=== PATIENT | male | born 1985 | race Caucasian/White ===

== ENCOUNTER → 2023-10-11 15:16 | Outpatient (REF) | payer OTHER, SELFPAY | LOC: RAD 15:16 | PROVIDERS: ATTENDING PHYSICIAN Surgery; FAMILY PHYSICIAN Internal Medicine | DX: K57.32 Diverticulitis of large intestine without perforation or abscess without bleeding (principal) | CPT/HCPCS: 74177; Q9967 ==

== ENCOUNTER → 2023-11-08 06:17 | Day surgery (SDC) | payer OTHER, SELFPAY | LOC: GI 06:17 | PROVIDERS: ATTENDING PHYSICIAN Surgery; FAMILY PHYSICIAN Internal Medicine | DX: Z12.11 Encounter for screening for malignant neoplasm of colon (principal); Z86.010 Personal history of colon polyps; K57.30 Diverticulosis of large intestine without perforation or abscess without bleeding | CPT/HCPCS: G0105 ==

== ENCOUNTER 2024-07-13 20:09 | Emergency (ER) | payer OTHER, SELFPAY ==
[2024-07-13 20:13] VITALS: BP 154/98
[2024-07-13 20:38] LABS: % Basophils 0.7 % (0-2); % Eosinophils 1.8 % (0-6); % Immature Granulocytes 0.4 % (0-0.5); % Lymphocytes 28.9 % (20.5-51.1); % Monocytes 5.7 % (1.7-9.3); % Neutrophils 62.5 % (42.2-75.2); Absolute Basophils 0.1 10^3/uL (0-0.2); Absolute Eosinophils 0.1 10^3/uL (0-0.7); Absolute Lymphocytes 2.1 10^3/uL (1.2-3.4); Absolute Monocytes 0.4 10^3/uL (0.1-0.6); Absolute Neutrophils 4.6 10^3/uL (1.4-6.5); Hematocrit 37.4 % (39.0-52.0); Hemoglobin 13.5 g/dL (13.0-18.0); Mean Corp Hgb Conc. 36.1 g/dL (33.0-37.0); Mean Corpuscular Hgb 30.8 pg (27.0-31.0); Mean Corpuscular Volume 85.4 fL (80.0-94.0); Mean Platelet Volume 9.8 fL (7.4-10.4); Nucleated Red Blood Cells % 0 % (-); Platelet Count 207 10^3/uL (130-400); Red Blood Cell Count 4.38 10^6/uL (4.70-6.10); White Blood Cell Count 7.4 10^3/uL (4.8-10.8)
[2024-07-13 21:03] LABS: ALT (SGPT) 39 U/L (0-50); AST (SGOT) 33 U/L (17-59); Albumin 5.3 g/dl (3.5-5.0); Alkaline Phosphatase 84 U/L (38-126); Blood Urea Nitrogen 14 mg/dl (9-20); Calcium 9.8 mg/dl (8.4-10.2); Carbon Dioxide 27 mmol/L (22-30); Chloride 102 mmol/L (98-107); Glucose 98 mg/dl (70-99); Lipase 87 U/L (23-300); Potassium 4.1 mmol/L (3.5-5.1); Sodium 141 mmol/L (135-145); Total Bilirubin 0.6 mg/dl (0.2-1.3); Total Protein 7.8 g/dl (6.3-8.2); eGFR > 60.00
[2024-07-13 21:34] VITALS: BP 168/87
[2024-07-13 21:39] VITALS: BMI 26.6
[2024-07-13 22:00] VITALS: BP 138/76
[2024-07-13] MEDS: OMNIPAQUE 50 ML PO (22:15)
[2024-07-13 22:27] LABS: Urine Albumin Negative (Neg - Trace); Urine Bilirubin Negative (Negative); Urine Character Clear (Clear); Urine Color Yellow; Urine Glucose Negative (Negative); Urine Ketone Negative (Negative); Urine Leukocyte Negative (Negative); Urine Nitrite Negative (Negative); Urine Occult Blood Negative (Negative); Urine Urobilinogen Negative (Neg - 1+)
--- NOTE | 2024-07-13 22:53 | ED.GENMED ---
History of Present Illness
<SHAN Melton - Last Filed: 07/14/24 05:20>
General
Chief Complaint: Abdominal Pain
Source: patient
Exam Limitations: none
Time Seen by Provider: 07/13/24 22:30
Nursing documentation reviewed up to this point in time: agreed with
History of Present Illness
History of Present Illness:
Patient is a 39yo M w/ PMH of severe diverticulitis presents to ED w/ abd discomfort x1mo. He reports having a flare about 1 mo ago w/ tenderness and constipation that was somewhat relieved w/ low residual diet. He reports continued on/off LLQ
discomfort in the past 4 weeks. He states it is not pain but a soreness or discomfort feeling. Occasional radiation to L leg. Worse w/ abd muscle flexing, bladder fullness, and gas. He reports constipation has improved w/ daily, well-formed BMs this
week. Reports stool sometimes looks like bile or mucus. He denies N/V/D, fever, and bloody/dark BM. He admits to contacting his colorectal surgeon for guidance but did not hear back.
Past History
<SHAN Melton - Last Filed: 07/14/24 05:20>
Past History
ED Past Medical History: None
ED Past Surgical History: Tonsilectomy
Social History
Tobacco: Non-smoker
Drug: None
Personal:
Living: with family
Employment: Employed
Family History
Family History: Other (No significant)
Review of Systems
<SHAN Melton - Last Filed: 07/14/24 05:20>
Review of Systems
Constitutional: Denies fever, fatigue or chills
Respiratory: Denies cough or trouble breathing
Cardiac: Denies chest pain or palpitations
ABD/GI: Reports abdominal pain; Denies nausea, vomiting, diarrhea, constipated, bloody stools or black stools
: Denies dysuria
Phy Exam
<Johnna Daley [facility] - Last Filed: 07/14/24 05:20>
General Physical Exam
General Presentation: well appearing
General age: appears stated age
General Skin: warm and dry
General Habitus: normal
General Mental: alert
Cardiovascular Exam
Cardiovascular Exam: regular rate/rhythm, no edema, no gallop and no murmur
Pulmonary Exam
Pulmonary Exam: lungs clear, no respiratory distress, no rales, no crackles, no rhonchi and no wheezing
Gastrointestinal Exam
Gastrointestinal Exam: normal bowel sounds, non tender, soft and no organomegaly
Neurological Exam
Neurological Exam: alert, oriented x3, no motor deficits, no sensory deficits and speech normal
Musculoskeletal Exam
Musculoskeletal Exam: no edema
Course
<Johnna Daley [facility] - Last Filed: 07/14/24 05:20>
Orders/Labs/Results
Orders:
Orders
07/13/24 20:28
Complete Blood Count/With Diff Urgent
Comprehensive Metabolic Panel Urgent
Lipase Urgent
07/13/24 22:13
Iohexol [Omnipaque] 50 ml .ROUTE .[facility]
07/13/24 22:14
Iohexol [Omnipaque] See Protocol PO NOW STA
07/13/24 22:19
Urinalysis Reflex To Culture Urgent
Date Specimen was Collected: 07/13/24
Time Specimen was Collected: 22:17
07/14/24 00:04
CT Abd/pelvis W Iv Cont Urgent
Reason For Exam: LLQ abdominal pain, hx diverticulitis,abscess
Abnormal Lab Results
07/13/24
20:28
RBC 4.38 L 10^6/uL
(4.70-6.10)
Hct 37.4 L %
(39.0-52.0)
Albumin 5.3 H g/dl
(3.5-5.0)
07/13/24 20:28
07/13/24 20:28
Vital Signs
Initial and Last Documented VS:
Initial Vital Signs
Temp Pulse Resp BP Pulse Ox
98.2 F 94 18 154/98 99
07/13/24 20:13 07/13/24 20:13 07/13/24 20:13 07/13/24 20:13 07/13/24 20:13
Last Documented Vital Signs
Temp Pulse Resp BP Pulse Ox
98.6 F 86 14 143/81 100
07/14/24 00:35 07/14/24 00:35 07/14/24 00:35 07/14/24 00:35 07/14/24 00:35
<Jakob Callahan, DO - Last Filed: 07/14/24 01:42>
Orders/Labs/Results
Orders:
Orders
07/13/24 20:28
Complete Blood Count/With Diff Urgent
Comprehensive Metabolic Panel Urgent
Lipase Urgent
07/13/24 22:13
Iohexol [Omnipaque] 50 ml .ROUTE .[facility] ONE
07/13/24 22:14
Iohexol [Omnipaque] See Protocol PO NOW STA
07/13/24 22:19
Urinalysis Reflex To Culture Urgent
Date Specimen was Collected: 07/13/24
Time Specimen was Collected: 22:17
07/14/24 00:04
CT Abd/pelvis W Iv Cont Urgent
Reason For Exam: LLQ abdominal pain, hx diverticulitis,abscess
Abnormal Lab Results
07/13/24
20:28
RBC 4.38 L 10^6/uL
(4.70-6.10)
Hct 37.4 L %
(39.0-52.0)
Albumin 5.3 H g/dl
(3.5-5.0)
07/13/24 20:28
07/13/24 20:28
Vital Signs
Initial and Last Documented VS:
Initial Vital Signs
Temp Pulse Resp BP Pulse Ox
98.2 F 94 18 154/98 99
07/13/24 20:13 07/13/24 20:13 07/13/24 20:13 07/13/24 20:13 07/13/24 20:13
Last Documented Vital Signs
Temp Pulse Resp BP Pulse Ox
98.6 F 86 14 143/81 100
07/14/24 00:35 07/14/24 00:35 07/14/24 00:35 07/14/24 00:35 07/14/24 00:35
<Jakob Callahan DO - Last Filed: 07/14/24 01:42>
MDM/Problems Addressed
Differential Diagnosis Includes:
Diverticulitis, colitis
MDM/Problems Addressed:
39-year-old male with likely chronic colitis. No signs of abscess or diverticulitis. Patient stable for discharge.
Chronic conditions affecting care: Other (Diverticulitis)
<SHAN Melton - Last Filed: 07/14/24 05:20>
*Critical Care Note
Total Time (30-74mins, 75-104mins- exclusive of procedures): Not Applicable
<DO Britney Fraser Last Filed: 07/14/24 01:42>
*Radiology
Radiology exam reviewed: radiology read reviewed (CT abdomen pelvis shows mild colon wall thickening, likely chronic process)
*Pulse Oximetry
Patient hypoxic: no
<DO Britney Fraser Last Filed: 07/14/24 01:42>
Patient Management
Social determinants of health affecting care: Living situation and Strong social support
Escalation/DeEscalation of care consider admission/obs:
Admit not indicated
ED Attending Note
<SHAN Melton - Last Filed: 07/14/24 05:20>
-
Portions of this chart may have been created with voice recognition software.� Occasional wrong word or��sound alike� substitutions may have occurred due to the inherent limitations of voice recognition software.
<Jakob Callahan DO - Last Filed: 07/14/24 01:42>
ED Attending Note
Patient seen and examined by attending physician: Yes
I performed a history and physical exam of patient and discussed management with resident, I reviewed resident's note and agree with documented findings and plan of care.: Yes
ED Attending Note:
I have reviewed and agree with history and treatment plan by SHAN Mejia. Exam revealed
Physical Exam
General: no apparent distress, not acutely ill
Neck: supple. no meningeal signs. normal posterior pharynx
Heart: s1/s2 regular rate and rhythm, no murmur. equal radial
pulses.
HEENT: Pupils equal round reactive to light, EOMI
Lungs: no acute respiratory distress. clear bilaterally
Abdomen: normal bowel sounds. Left lower quadrant tender, no rebound or guarding. No CVAT
Neuro: alert and oriented. no focal neurological deficits cranial nerves II through XII intact
Skin: no rash
Psychiatric: well kept. interactive and cooperative
Extremities: no edema. no calf tenderness. negative homans. good distal pulses
Discharge Plan
Departure
Patient Disposition: Home (Routine Discharge)
Date of Disposition: 07/14/24
Time of Disposition: 01:41
Patient with high blood pressure during this ER visit?: Yes
Condition: Good
Discharge Problem:
Colitis
Instructions: Colitis, BLOOD PRESSURE
Prescriptions:
No Action
atorvastatin 10 mg tablet
10 mg PO HS
Referrals:
Saurabh Garza DO [Family Provider] -
Gamaliel Ta MD [Active] - Call in 1-3 days for appt
Interventions
Interventions:
*Risk Screen - Suicide Last Done: 07/13/24 21:42
*General Assessment Last Done: 07/13/24 20:13
*Neglect/Abuse Screening Last Done: 07/13/24 21:41
ED- Fall Risk Assessment Last Done: 07/13/24 21:43
*ED COVID-19 Vaccine History Last Done: 07/13/24 21:40
*Nursing Disposition Last Done: 07/14/24 02:09
GJ-[id number]-Cpidquvbem Assessment Last Done: 07/13/24 21:43
Discharge Date and Time
Discharge Date/Time: 07/14/24 02:09
Print Language: ITALIAN
Assessment and Plan
<SHAN Melton - Last Filed: 07/14/24 05:20>
Assessment and Plan
(1) Chronic colitis:
Status: Suspected
Plan:
follow up w/ colorectal surgeon
<Jakob Callahan DO - Last Filed: 07/14/24 01:42>
Assessment and Plan
(1) Chronic colitis:
[2024-07-14 00:35] VITALS: BP 143/81
== END 2024-07-14 02:09 | disposition home or self-care (01) ==
LOC: EMR 20:09
PROVIDERS: Emergency Medicine; EMERGENCY PHYSICIAN Emergency Medicine; FAMILY PHYSICIAN Internal Medicine
DX: K52.9 Noninfective gastroenteritis and colitis, unspecified (principal)
CPT/HCPCS: 99284; 74177; 80053; 81003; 83690; 85025; Q9967

== ENCOUNTER → 2025-03-07 14:48 | Outpatient (REF) | payer OTHER, SELFPAY | LOC: HWRAD 14:48 | PROVIDERS: ATTENDING PHYSICIAN Internal Medicine | DX: K21.9 Gastro-esophageal reflux disease without esophagitis (principal); R10.13 Epigastric pain | CPT/HCPCS: 76700 ==

== ENCOUNTER 2025-03-28 05:04 | Emergency (ER) | payer BC, SELFPAY ==
[2025-03-28 05:06] VITALS: BP 156/106
--- NOTE | 2025-03-28 06:08 | ED.GENMED ---
History of Present Illness
<HARSH Jessica - Last Filed: 03/28/25 10:40>
General
Chief Complaint: Allergic Reaction
Source: patient
Exam Limitations: none
Time Seen by Provider: 03/28/25 06:08
Nursing documentation reviewed up to this point in time: agreed with
History of Present Illness
History of Present Illness:
Patient is a 39-year-old male presents to the ER complaining of allergic reaction. Patient started with hives on Tuesday. He reports for the past 36 hours he has had intermittent hives. He did take Benadryl yesterday and has been taking 50 mg
every 4 hours without relief. He does complain of some itching. He denies any difficulty breathing. Denies any lip or tongue swelling. Denies any trouble swallowing .
He denies any new lotions soaps detergents. He does admit he was started on Nexium 1 week ago for reflux. He did stop this. He denies any recent fever chills recent illness. He denies any myalgia.
Past History
<HARSH Jessica - Last Filed: 03/28/25 10:40>
Past History
ED Past Medical History: None
ED Past Surgical History: Tonsilectomy
Social History
Tobacco: Non-smoker
Drug: None
Personal:
Living: with family
Employment: Employed
Family History
Family History: Other (No significant)
Phy Exam
<HARSH Jessica - Last Filed: 03/28/25 10:40>
General Physical Exam
General Presentation: no apparent distress
General age: appears stated age
General Skin: warm and dry
General Habitus: normal
General Mental: alert
General Hydration: appears well hydrated
Neurological Exam
Neurological Exam: alert and oriented x3
Musculoskeletal Exam
Musculoskeletal Exam: full ROM
Skin Exam
Skin Exam: normal color, warm/dry and other (Scattered hives)
Course
<HARSH Jessica - Last Filed: 03/28/25 10:40>
Orders/Labs/Results
Orders:
Orders
03/28/25 06:19
IV Insert/Care/Rem.- Treatment PRN
0.9% Sodium Chloride 1000 ml [Nss] 1,000 ml IV BOLUS
Dexamethasone Sod Phosphate [Decadron] 10 mg IV NOW STA
Diphenhydramine [Benadryl] 50 mg IV NOW STA
Famotidine [Pepcid] 20 mg IV NOW STA
Vital Signs
Initial and Last Documented VS:
Initial Vital Signs
Temp Pulse Resp BP Pulse Ox
97.8 F 128 20 156/106 100
03/28/25 05:06 03/28/25 05:06 03/28/25 05:06 03/28/25 05:06 03/28/25 05:06
Last Documented Vital Signs
Temp Pulse Resp BP Pulse Ox
97.8 F 91 18 125/87 98
03/28/25 05:06 03/28/25 10:32 03/28/25 10:32 03/28/25 10:32 03/28/25 10:32
Network Associate consulted with Physician
Network Associate consulted with physician?: Yes ([place] )
<Jakob Callahan, - Last Filed: 03/28/25 06:52>
Orders/Labs/Results
Orders:
Orders
03/28/25 06:19
IV Insert/Care/Rem.- Treatment PRN
0.9% Sodium Chloride 1000 ml [Nss] 1,000 ml IV BOLUS
Dexamethasone Sod Phosphate [Decadron] 10 mg IV NOW STA
Diphenhydramine [Benadryl] 50 mg IV NOW STA
Famotidine [Pepcid] 20 mg IV NOW STA
Vital Signs
Initial and Last Documented VS:
Initial Vital Signs
Temp Pulse Resp BP Pulse Ox
97.8 F 128 20 156/106 100
03/28/25 05:06 03/28/25 05:06 03/28/25 05:06 03/28/25 05:06 03/28/25 05:06
Last Documented Vital Signs
Temp Pulse Resp BP Pulse Ox
97.8 F 91 18 125/87 98
03/28/25 05:06 03/28/25 10:32 03/28/25 10:32 03/28/25 10:32 03/28/25 10:32
<HARSH Jessica - Last Filed: 03/28/25 10:40>
MDM/Problems Addressed
Differential Diagnosis Includes:
Not limited to allergic reaction, hives, urticaria
MDM/Problems Addressed:
Patient with hives for the past 36 hours with no known source. Not really with Benadryl at home. He presents nontoxic. He is in no acute distress. He denies any associated shortness of breath lip or tongue swelling. He does have generalized
hives on exam. He is well-appearing. His lungs are clear he is afebrile he has not hypoxic. Will give a dose of IV steroids, Benadryl, Pepcid and reevaluate With plan with plan to discharge home on Decadron.
Patient has a monitored here rash still present but less pronounced less red. Patient is well-appearing he has had no difficulty breathing no lip or tongue swelling lungs are clear nonhypoxic stable for discharge home. He did receive IV Benadryl
however IV Benadryl was given 4 hours ago and he is awake alert does not feel drowsy and feels safe to drive home.
<HARSH Jessica - Last Filed: 03/28/25 10:40>
*Pulse Oximetry
SaO2: 100
Oxygen Mode of Delivery: Room air
Patient hypoxic: no
*Critical Care Note
Total Time (30-74mins, 75-104mins- exclusive of procedures): Not Applicable
ED Attending Note
<HARSH Jessica - Last Filed: 03/28/25 10:40>
-
Portions of this chart may have been created with voice recognition software.� Occasional wrong word or��sound alike� substitutions may have occurred due to the inherent limitations of voice recognition software.
<Jakob Callahan, - Last Filed: 03/28/25 06:52>
ED Attending Note
Patient seen and examined by attending physician: Yes
ED Attending Note:
I have reviewed and agree with history and treatment plan by HARSH Rutledge. My exam reveals 39-year-old male in no visible distress. Diffuse urticaria sparing palms and soles, no oral or mucosal involvement. No respiratory distress.
Treat with antihistamines and prednisone. Stable for discharge.
Discharge Plan
Departure
Patient Disposition: Home (Routine Discharge)
Date of Disposition: 03/28/25
Time of Disposition: 10:34
Patient with high blood pressure during this ER visit?: Yes
Discharge Problem:
Hives
Instructions: Hives (DC), BLOOD PRESSURE
Prescriptions:
New
prednisone 20 mg tablet
40 mg PO DAILY Qty: 10 0RF
No Action
atorvastatin 10 mg tablet
10 mg PO HS
esomeprazole magnesium [Nexium] 40 mg Capsule,Delayed Release(Dr/Ec)
40 mg PO DAILY
Activity Restrictions/Additional Instructions:
As discussed you may either continue Benadryl or start to take Claritin. In addition please take [id number] Pepcid 20 mg a day. A prescription for steroids have been sent to your pharmacy take as directed daily starting tomorrow. Closely
follow-up with your family doctor in the next several days. return if any worsening of symptoms of difficulty breathing lip or tongue swelling or any further concerns.
Interventions
Interventions:
*Risk Screen - Suicide Last Done: 03/28/25 05:06
*General Assessment Last Done: 03/28/25 05:57
*Neglect/Abuse Screening Last Done: 03/28/25 05:06
*ED- Fall Risk Assessment Last Done: 03/28/25 05:57
*ED COVID-19 Vaccine History Last Done: 03/28/25 05:57
ED- Cardiac Assessment Last Done: 03/28/25 05:57
ED- Pulmonary Assessment Last Done: 03/28/25 05:57
ED-Skin Assessment Last Done: 03/28/25 05:57
Discharge Date and Time
Print Language: DIVEHI
[2025-03-28] MEDS: DECADRON 10 MG IV (06:34)
[2025-03-28] MEDS: BENADRYL 50 MG IV (06:34)
[2025-03-28] MEDS: NSS 1000 IV (06:34)
[2025-03-28] MEDS: PEPCID 20 MG IV (06:35)
[2025-03-28 07:33] VITALS: BP 120/80
[2025-03-28 08:03] VITALS: BP 120/72
[2025-03-28 10:32] VITALS: BP 125/87
== END 2025-03-28 11:01 | disposition home or self-care (01) ==
LOC: EMR 05:04
PROVIDERS: EMERGENCY PHYSICIAN Emergency Medicine; FAMILY PHYSICIAN Internal Medicine
DX: L50.9 Urticaria, unspecified (principal)
CPT/HCPCS: 99282; 96374; 96375